=== PATIENT | male | born 1950 | race Caucasian/White ===

== ENCOUNTER → 2018-05-25 | Outpatient (CLI) | payer OTHER ==
[~2018-05-25] VITALS: Ht 185.4 cm; Wt 115.7 kg
[~2018-05-25] MED LIST: CRESTOR40 MG PO; PAXIL10 MG PO; PRILOSEC 20 MG20 MG PO; PRINIVIL10 MG PO
[2018-05-25 09:44] VITALS: BP 155/61
[2018-05-25 09:51] LABS: HEMATOCRIT 43.2 % (42.0-52.0); HEMOGLOBIN 14.2 gm/dL (14.0-18.0); MCH 29.5 pg (26.0-34.0); MCHC 32.9 g/dL (28.0-37.0); MCV 89.6 fL (80.0-100.0); RBC 4.82 mil/uL (4.50-6.00); RDW 13.6 % (10.5-14.5); WBC 7.5 thou/uL (4.0-11.0)
[2018-05-25 09:57] LABS: CALCIUM 9.5 mg/dL (8.5-10.1); CREATININE 1.1 mg/dL (0.7-1.3); POTASSIUM 4.3 mmol/L (3.5-5.1)
--- NOTE | 2018-05-25 15:54 | EKG ---
[place] [address] [facility] [place] [address] ELECTROCARDIOGRAM REPORT Name: AYLEEN MATHUR Room #: REG EDUIN Bosch#: [id number] ������������������ Admission: 05/25/18 ������������������ Attend Phys: Shelton Alcala MD Discharge: ������������������ Date of : 54 Report #: [id number] ����������������������������������������������������������������� [id number] THIS REPORT FOR: //name// [facility] Test Date: 2018-05-25 Test Time: 09:38:20 Pat Name: AYLEEN MATHUR Department: Room: Gender: Correctional Officer Chief: Tamiko SAUL : 1950 Requested By: Shelton Alcala Order Number: [id number] MD: Tyson Taylor Measurements Intervals Grethel Rate: 44 P: 36 [place]: 182 QRS: -39 QRSD: 110 T: 29 QT: 503 QTc: 431 Interpretive Statements Sinus bradycardia Left ventricular hypertrophy No previous ECG available for comparison Electronically Signed On 05-25-2018 15:54:21 THERAPEUTIC MASSAGE TECHNICIAN by Tyson Taylor [email or web address] ��������������������������������������������� <ELECTRONICALLY SIGNED> ���������������������������������������� By: Tyson Taylor MD ��������������������������������������������� 05/25/18 1554 0938 0938 Tyson Taylor MD /LYUDMILA
--- NOTE | 2018-05-25 18:04 | CATHLAB ---
[facility] [address] [place] [address] INVASIVE PROCEDURE REPORT Name: AYLEEN MATHUR Room #: REG ANDERSON Young.#: [id number] ������������� Admission: 05/25/18 ������������� Attend Phys: Shelton Alcala MD Discharge: ��� ������������� ��� Date of : 54 Date of Service: 05/25/18 180 �� Report #: [id number] �������� ��������������������������������������������[id number] THIS REPORT FOR: //name// APPROVED REPORT Study performed: 05/25/2018 13:54:59 Patient Details Patient Status: Out-Patient Room #: The patient is a 68 year-old male Event Personnel Shelton Alcala Peat Shredder Tender, Malini Stuart RTR, DONOR SERVICES MANAGER Monitor, Flower Martin RN RN, Deidre Beltran RN RN, Elmo Willingham Scrub Procedures Performed Art Access - R radial artery Left Heart Cath w/or w/o Coronaries [id number] [facility] [address] Initial Mod Sed Same Phys/QHP [facility] [id number] Mod Sed Same Phys/QHP Ea [id number] Hemostasis with Hemoband Indication Abnormal ECG, Positive stress test, Pre-op clearance Risk Factors Hypercholesterolemia, Hypertension Procedure Narrative The Right Wrist^ was infiltrated with 1% Lidocaine subcutaneous anesthesia. A TRANSRADIAL SLENDER 6F GLIDESHEATH KIT #[id number] sheath was inserted into the Right Radial Artery^. Coronary angiography was performed using coronary diagnostic catheters. The right coronary system was accessed and visualized with a 5FR JR 4 #[id number] catheter. The left coronary system was accessed and visualized with a 5FR JL 3.5 #[id number] catheter. The left ventricle was accessed and visualized with a 5FR PIG 145 ANGLED #[id number] catheter. Left ventricular/Aortic Valve gradient assessed via catheter pullback. Left ventriculogram was performed in 30 degree projection. Closure device was deployed with a Fr VASC BAND R 24CM #[id number]. The patient tolerated the procedure well and there were no complications associated with the procedure. There was no hematoma. Intraoperative Conscious Sedation Sedation start time: 14:09 Case end Time: [facility] [address] [place] [address] INVASIVE PROCEDURE REPORT Name: AYLEEN MATHUR Room #: REG [facility]#: [id number] ������������� Admission: 05/25/18 ������������� Attend Phys: Shelton Alcala MD Discharge: ��� ������������� ��� Date of : 54 Date of Service: 05/25/18 1803 �� Report #: [id number] �������� ��������������������������������������������[id number] 14:47 Fentanyl 25 mcg Versed 1 mg Fluoro Time: 14.10 minutes Dose: DAP 48552.00 cGycm2 2651 mGy Contrast Type and Amount: Omnipaque 105 ml Coronary Angiography The patient's coronary anatomy is right dominant. Diagnostic Cath Left Main This is a patent vessel, with no flow-limiting lesions. LAD This is a moderate size caliber vessel, traversing down the anterior wall and wrapping around the apex. There is mild to moderate disease in the midsegment, 50%. Diagonal 1 This is a moderate size caliber vessel, divides into 2 branches. This vessel is patent with no flow-limiting lesions. Circumflex This is a moderate size caliber vessel with mild disease proximally, 20%. OM1 This is a moderate size caliber vessel, as it travels down the inferolateral wall, patent with no flow-limiting lesions. Right Coronary This is a heavily calcified vessel, tortuous in the proximal and mid segments. There are subtotal occlusions in the proximal and mid segments of the RCA. The PDA and RPL branches are filled via both antegrade flow and collateral blood flow from the left coronary artery. Left Ventriculography The left ventricle is normal in size with normal contractility. The left ventricular ejection fraction is estimated to be 50-55%. An LVEDP was measured and there is no gradient across the outflow tract. Hemodynamics The aortic pressure is 168/70 mmHg with a mean of 103 mmHg. The left ventricular pressure is 176/12 mmHg with a mean of mmHg. The left ventricular end diastolic pressure is 30 mmHg. Conclusion 1. 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 2. Moderate disease in the mid LAD. 3. Normal LV systolic function. [facility] [address] [place] [address] INVASIVE PROCEDURE REPORT Name: AYLEEN MATHUR Room #: REG Hiro#: [id number] ������������� Admission: 05/25/18 ������������� Attend Phys: Shelton Alcala MD Discharge: ��� ������������� ��� Date of : 54 Date of Service: 05/25/18 1803 �� Report #: [id number] �������� ��������������������������������������������[id number] 4. Recommend medical therapy including aggressive risk factor management. ��������������������������������������������� <ELECTRONICALLY SIGNED> ���������������������������������������� By: Shelton Alcala MD ��������������������������������������������� 05/25/18 180 02 02 Shelton Alcala MD /INF
== END | disposition home or self-care (01) ==
LOC: CATH 07:41
PROVIDERS: Internal Medicine Cardiovascular Disease
DX: I25.10 Atherosclerotic heart disease of native coronary artery without angina pectoris (principal); I25.82 Chronic total occlusion of coronary artery; I10 Essential (primary) hypertension; E78.5 Hyperlipidemia, unspecified; K21.9 Gastro-esophageal reflux disease without esophagitis; Z87.891 Personal history of nicotine dependence; Z98.890 Other specified postprocedural states; Z79.899 Other long term (current) drug therapy; Z88.8 Allergy status to other drugs, medicaments and biological substances